=== PATIENT | male | born 1955 | race Caucasian/White ===

== ENCOUNTER 2018-06-20 11:32 | Outpatient (CLI) | payer OTHER ==
[~2018-06-20] VITALS: Ht 180.3 cm; Wt 60.0 kg
--- NOTE | ~2018-06-20 | HEMODYNAMI ---
PATIENT:SELINA COPELAND MEDICAL RECORD: [id number] : 57 LOCATION:[facility] ADMISSION DATE: 06/20/18 Generatedon:06/20/201813:47 Patient name: SELINA COPELAND Patient #: [id number] SSN: : Date of study: 06/20/2018 Page: Of Hemodynamic Procedure Report Patient Data Patient Demographics Procedure consent was obtained First Name: SELINA Gender: Male Last Name: MIN : 1955 Patient #: [id number] Age: 63 year(s) Race: Unknown Additional ID: [id number] Contact details Address: [address] [place] [address] [address] State: [place] City: [facility] Zip code: [address] Past Medical History Allergies Allergen Reaction Date Comments Reported Other allergy 06/20/2018 PCN Admission Admission Data Admission Date: 06/20/2018 Admission Time: 11:32 Procedure Procedure Types Cath Procedure Diagnostic Procedure LHC LHC w/Coronaries Sedation Charges Moderate Sedation up to 15 minutes Procedure Description Procedure Date Procedure Date: 06/20/2018 Procedure Start Time: 13:15 Procedure End Time: 13:32 Procedure Staff Name Function George Rowe MD Performing Physician Kristie Middleton RT Monitor Xiomara Turpin RT Scrub Nelson Constantino RN Nurse Procedure Data Cath Procedure Fluoroscopy Diagnostic fluoroscopy Total fluoroscopy Time: 2 time: 2 min min Diagnostic fluoroscopy Total fluoroscopy dose: 682 dose: 682 mGy mGy Contrast Material Contrast Material Type Amount (ml) Isovue 300 71 Entry Location Entry Primary Successful Side Size Upsize Upsize Entry Closure [place] ccessful Closure Location (Fr) 1 (Fr) 2 (Fr) Remarks Device Remarks Radial Right 6 Fr Mechanical artery Short Compression Estimated blood loss: 10 ml Diagnostic catheters Device Type Used For End Catheter Placement DIAGNOSTIC Tadeo 110cm Procedure 5Fr catheter ([id number]) Procedure Complications No complications Procedure Medications Medication Administration Route Dosage Oxygen etCO2 Nasal cannula 2 l/min Heparin Flush Bag added to field 2 bags (1000units/500ml NS) 0.9% NaCl I.V. 100 ml/hr Radial Cocktail added to field 1 syringe (Verapomil 2mg/Nitro 400mcg/Heparin 1500units) Fentanyl I.V. 50 mcg Versed I.V. 1 mg Fentanyl I.V. 50 mcg Versed I.V. 1 mg Fentanyl I.V. 50 mcg Versed I.V. 1 mg Radial Cocktail I.A. 1 syringe (Verapomil 2mg/Nitro 400mcg/Heparin 1500units) Fentanyl I.V. 50 mcg Versed I.V. 1 mg Fentanyl I.V. 50 mcg Versed I.V. 1 mg Fentanyl I.V. 50 mcg Versed I.V. 1 mg Hemodynamics Rest Heart Rate: 89 (bpm) Pressure Samples Time Site Value (mmHg) Purpose Heart Use Rate(bpm) 13:18 LV 81/11,20 Snapshot 89 13:20 LV 122/-3,22 Snapshot 64 13:21 LV 127/-4,24 Snapshot 60 13:22 AO 111/64(84) Pullback 63 13:22 LV 126/-4,22 Pullback 63 Gradients Valve Time Site 1 Site 2 Mean SEP/DFP Peak To Heart Use (mmHg) (sec/min) Peak Rate (mmHg) (bpm) Aortic 13:22 LV AO 9 18 15 63 126/-4,22 111/64(84) Calculations Valve P-P Mean Valve Index Valve Source Name Gradient Area Flow (cm2) Aortic 15 9 15 9 Snapshots Pre Cath Intra NCS Post Cath Vital Signs Time Heart Resp SPO2 etCO2 NIBP Rhythm Pain Sedation Rate (ipm) (%) (mmHg) (mmHg) Status Level (bpm) 12:59:31 60 16 0 Measuring NSR 0 (11) 10(A) , No pain 12:59:51 58 16 100 0 106/78(90) NSR 0 (11) 10(A) , No pain 13:03:57 59 16 98 0 106/69(80) NSR 0 (11) 10(A) , No pain 13:08:05 58 17 98 0 109/67(80) NSR 0 (11) 10(A) , No pain 13:12:11 57 16 98 0 105/72(86) NSR 0 (11) 10(A) , No pain 13:16:21 54 17 98 1.5 92/59(71) NSR 0 (11) 9(A) , No pain 13:20:22 69 16 96 0 94/71(85) NSR 0 (11) 9(A) , No pain 13:25:11 80 17 94 0 107/66(91) NSR 0 (11) 9(A) , No pain 13:29:17 85 16 94 0 110/72(91) NSR 0 (11) 9(A) , No pain 13:35:32 88 17 94 0 105/65(87) NSR 0 (11) 9(A) , No pain 13:42:52 83 17 94 0 101/63(80) NSR 0 (11) 9(A) , No pain Medications Time Medication Route Dose Verified Delivered Reason Notes Effectiveness by by 13:00:43 Oxygen etCO2 2 l/min George Nelson Per Nasal Jae Constantino RN physician cannula 13:00:52 Heparin Flush added 2 bags George Nelson used for Bag to Jae Constantino supervisor compressed yeast (1000units/500ml field NS) 13:01:01 0.9% NaCl I.V. 100 George Nelson Per ml/hr Jae Constantino RN physician 13:01:09 Radial Cocktail added 1 George Nelson used for (Verapomil to syringe Jae Constantino RN procedure 2mg/Nitro field 400mcg/Heparin 1500units) 13:10:17 Fentanyl I.V. 50 mcg George Nelson for sedation Jae Constantino RN 13:10:24 Versed I.V. 1 mg George Nelson for sedation Jae Constantino RN 13:13:13 Fentanyl I.V. 50 mcg George Nelson for sedation Jae Constantino RN 13:13:16 Versed I.V. 1 mg George Nelson for sedation Jae Constantino RN 13:15:33 Fentanyl I.V. 50 mcg George Nelson for sedation Jae Constantino RN 13:15:36 Versed I.V. 1 mg George Nelson for sedation Jae Constantino RN 13:16:24 Radial Cocktail I.A. 1 George George for (Verapomil syringe Jae pringle 2mg/Nitro 400mcg/Heparin 1500units) 13:17:51 Fentanyl I.V. 50 mcg George Nelson for sedation Jae Constantino RN 13:17:56 Versed I.V. 1 mg George Nelson for sedation Jae Constantino RN 13:19:48 Fentanyl I.V. 50 mcg George Nelson for sedation Jae Constantino RN 13:20:05 Versed I.V. 1 mg George Nelson for sedation Jae Constantino RN 13:23:38 Fentanyl I.V. 50 mcg George Nelson for sedation Jae Constantino RN 13:23:42 Versed I.V. 1 mg George Nelson for sedation Jae Constantino RN Procedure Log Time Note 12:40:02 Nelson Constantino RN sent for patient. Start room use. 12:49:03 Time tracking: Regular hours (M-F 7:00 - 5:00) 12:49:08 Plan of Care:Hemodynamics will remain stable., Cardiac rhythm will remain stable., Comfort level will be maintained., Respiratory function will remain adequate., Patient/ family verbilizes understanding of procedure., Procedure tolerated without complication., Recovers from procedure without complications.. 12:53:59 Patient received from Pre/Post Procedure Room to CCL 2 Alert and oriented. Tansferred to table in Supine position. 12:54:00 Warm blankets applied, and viry hugger turned on for patient comfort. 12:54:00 Correct patient and procedure confirmed by team. 12:54:02 Signed procedure consent form obtained from patient. 12:54:03 ECG and BP/O2 sat monitors applied to patient. 12:57:43 Vital chart was started 12:57:57 Full Disclosure recording started 12:58:15 H&P Date Dictated: 06/02/2018 Within 30 days and on chart., H&P Addendum completed by physician on day of procedure. (MUST COMPLETE FOR ALL OUTPATIENTS). 12:58:17 Pre-procedure instructions explained to patient. 12:58:19 Family in waiting room. 12:58:21 Patient NPO since Midnight. 12:58:32 Patient allergic to Other allergyPCN 12:58:40 Was the patient premedicated? Yes 12:58:41 Is patient on blood thinner?No 12:58:48 Patient diabetic? No. 12:58:53 Snore? Yes 12:58:54 Sleep apnea? Yes 12:58:55 Deviated septum? No 12:58:57 Opens mouth fully? Yes 12:58:59 Sticks out tongue? Yes 12:59:05 Dentures? No ? 12:59:11 Patient pain scale 0/10 ?. 12:59:22 IV patent on arrival in left forearm with 0.9% NaCl at [facility]. 12:59:30 Lab results completed and on chart. 12:59:37 Right Radial & Right Groin area was prepped with chlora-prep and draped in sterile fashion 12:59:38 Alarms reviewed by R. N. 12:59:38 Sharps counted by scrub and verified by R.N. 12:59:41 Physician paged 13:00:43 Oxygen 2 l/min etCO2 Nasal cannula was administered by Nelson Constantino RN; Per physician; 13:00:52 Heparin Flush Bag (1000units/500ml NS) 2 bags added to field was administered by Nelson Constantino RN; used for procedure; 13:01:01 0.9% NaCl 100 ml/hr I.V. was administered by Nelson Constantino RN; Per physician; 13:01:09 Radial Cocktail (Verapomil 2mg/Nitro 400mcg/Heparin 1500units) 1 syringe added to field was administered by Nelson Constantino RN; used for procedure; 13:09:51 Physician arrived 13:09:51 --------ALL STOP TIME OUT------ 13:09:52 Final Timeout: patient, procedure, and site verified with staff and physician. All members of the team are in agreement. 13:10:00 Right Radial & Right Groin site verified by team. 13:10:06 Physical assessment completed. ASA score P 2 - A patient with mild systemic disease as per George Rowe MD. 13:10:13 Sedation plan: IV Moderate Sedation Medication:Versed, Fentanyl 13:10:17 Fentanyl 50 mcg I.V. was administered by Nelson Constantino RN; for sedation; 13:10:20 Use device set Radial Dx or PCI 13:10:21 ACIST Syringe (46543) opened to sterile field. 13:10:21 Medline Cath Pack ([id number]) opened to sterile field. 13:10:21 Bag Decanter (2002S) opened to sterile field. 13:10:22 DIAGNOSTIC WIRE .035 260cm J wire (367613) opened to sterile field. 13:10:22 ACIST Hand Control (33555) opened to sterile field. 13:10:23 ACIST Manifold (62919) opened to sterile field. 13:10:23 Tegaderm 4 x 4 (1626W) opened to sterile field. 13:10:24 Versed 1 mg I.V. was administered by Nelson Constantino RN; for sedation; 13:10:24 MBrace Wrist Support ([id number]) opened to sterile field. 13:10:24 NEEDLE Cook 21G 4cm Radial ([id number]) opened to sterile field. 13:10:41 TR BAND Standard ([id number]) opened to sterile field. 13:10:45 SHEATH 6Fr Prelude Radial ([id number]) opened to sterile field. 13:13:13 Fentanyl 50 mcg I.V. was administered by Nelson Constantino RN; for sedation; 13:13:16 Versed 1 mg I.V. was administered by Nelson Constantino RN; for sedation; 13:15:33 Fentanyl 50 mcg I.V. was administered by Nelson Constantino RN; for sedation; 13:15:36 Versed 1 mg I.V. was administered by Nelson Constantino RN; for sedation; 13:15:41 Local anesthetic to right radial artery with Lidocaine 2% by George Rowe MD.INITIAL ACCESS ONLY 13:16:08 A 6 Fr Short sheath was inserted into the Right Radial artery 13:16:24 Radial Cocktail (Verapomil 2mg/Nitro 400mcg/Heparin 1500units) 1 syringe I.A. was administered by George Rowe MD; for vasodilation; 13:17:09 A DIAGNOSTIC Tadeo 110cm 5Fr catheter ([id number]) was advanced over the wire and used for Procedure. 13:17:51 Fentanyl 50 mcg I.V. was administered by Nelson Constantino RN; for sedation; 13:17:56 Versed 1 mg I.V. was administered by Nelson Constantino RN; for sedation; 13:19:48 Fentanyl 50 mcg I.V. was administered by Nelson Constantino RN; for sedation; 13:20:05 Versed 1 mg I.V. was administered by Nelson Constantino RN; for sedation; 13:22:09 EF : 55 % 13:22:13 LV angiography performed. 13:22:15 LV gram done using CHEN 13:23:10 RCA angiography performed. 13:23:38 Fentanyl 50 mcg I.V. was administered by Nelson Constantino RN; for sedation; 13:23:42 Versed 1 mg I.V. was administered by Nelson Constantino RN; for sedation; 13:24:00 LCA angiography performed. 13:24:19 Pt. bagged with bag/mask with 100% O2 by Nelson Constantino RN 13:27:26 Catheter removed. 13:27:50 Sheath removed intact; hemostasis achieved with Mechanical Compression to the Right Radial artery. 13:27:53 Procedure ended.(Physican Out) 13:28:17 Fluoroscopy time 02.00 minutes. 13:28:21 Flurop Dose total: 682 13:28:21 Fluoroscopy dose: 682 mGy 13:29:07 Contrast amount:Isovue 300 71ml. 13:29:08 Sharps counted by scrub and verified by R.N. 13:29:28 TR band inflated with 10cc of air. 13:29:30 Insertion/operative site no bleeding no hematoma. 13:29:37 Post right femoral artery:stable 13:29:40 Post Procedure Pulses reassessed and unchanged 13:29:47 Post-procedure physical assessment completed. ASA score P 2 - A patient with mild systemic disease as per George Rowe MD. 13:29:52 Post procedure rhythm: unchanged. 13:30:05 Estimated blood loss: 10 ml 13:30:09 Post procedure instruction explained to patient.Patient verbalizes understanding. 13:31:12 Procedure type changed to Cath procedure, Diagnostic procedure, LHC, LHC w/Coronaries, Sedation Charges, Moderate Sedation up to 15 minutes 13:31:14 Procedure and supply charges have been captured, reviewed, submitted and are correct. 13:32:20 Procedure Complication : No complications 13:32:24 Vital chart was stopped 13:32:34 See physician's report for complete and final results. 13:32:36 Report given to Pre/Post Procedure Room. 13:32:42 Patient transfered to Pre/Post Procedure Room with Stretcher. 13:32:44 Procedure ended. 13:32:44 Full Disclosure recording stopped 13:32:48 End room use (Document Last) Device Usage Item Name Manufacture Quantity Catalog Number Hospital Part Current M inimal Lot# / Charge Number Stock Stock Serial# Code ACIST Syringe Acist 1 73284 292977 078520 939380 2 0 (67177) [employer] Medline Cath Medline 1 [id number] 096646 76011 041653 5 Pack ([id number]) Bag Decanter Microtek 1 2001S 802328 75697 881029 5 (2001S) Medical Inc. DIAGNOSTIC WIRE St Javed 1 815680 757394 284293 122906 3 0 .035 260cm J wire (521567) ACIST Hand Acist 1 41366 673746 034043 666784 5 Control (33522) [employer] ACIST Manifold Acist 1 15894 313788 431240 449570 5 (39475) [employer] Inc Tegaderm 4 x 4 3M 1 1626W 499044 987779 080225 5 (1626W) MBrace Wrist Advanced 1 140-0250-00 622255 80650 785161 5 Support Vascular ([id number]) Dynamics NEEDLE Cook 21G Cook Medical 1 Q82087 577338 993405 670379 5 4cm Radial (H14934) TR BAND Terumo 1 VCN02-TTL 621480 784591 752534 4 0 Standard ([id number]) SHEATH 6Fr Merit 1 [id number] 181985 422598 640299 5 Prelude Radial Medical ([id number]) DIAGNOSTIC Terumo 1 40-7286 112415 158173 592630 5 Tadeo 110cm 5Fr catheter (594350) Signature Audit English Stage Time Signature Unsigned Intra-Procedure 06/20/2018 Kristie Middlteon 1:47:51 PM RT(R) Signatures Monitor : Kristie Middleton Signature : RT Date : Time : [facility] [address] [place] [address]
[2018-06-20] MEDS ORDERED: LISINOPRIL5 MG PO (11:48)
[2018-06-20] MEDS ORDERED: PRAVACHOL40 MG PO (11:50)
[2018-06-20 12:15] VITALS: BP 106/68; Ht 180.3 cm; Wt 60.0 kg
[2018-06-20] MEDS ORDERED: CELEXA40 MG PO (12:20)
[2018-06-20] MEDS ORDERED: KLONOPIN0.5 MG PO (12:20)
[2018-06-20] MEDS ORDERED: NEURONTIN 300300 MG PO (12:21)
[2018-06-20 12:31] LABS: BASOPHILS 0 % (0-2); EOSINOPHILS 1.9 % (0-7); HEMATOCRIT 41.3 % (42.0-54.0); HEMOGLOBIN 14.8 g/dL (13.5-17.5); IMMATURE GRANULOCYTES 0.2 % (0-5); LYMPHOCYTES 42.4 % (15-50); MCH 32.7 pg (26.0-34.0); MCHC 35.8 g/dL (31.0-37.0); MCV 91.2 fL (80.0-100.0); MEAN PLATELET VOLUME 9.3 fL (7.4-10.4); MONOCYTES 6.8 % (2-11); NEUTROPHILS 48.7 % (40-80); PLATELET COUNT 100 10x3/uL (130-400); RBC 4.53 10x6/uL (4.20-6.10); WBC 4.1 10x3/uL (4.8-10.8)
[2018-06-20 12:44] LABS: CALC OSMOLALITY 285 mosm/kg (275-300); CALCIUM 8.7 mg/dL (8.5-10.1); CARBON DIOXIDE 28.4 mmol/L (21.0-32.0); CHLORIDE - SERUM 108 mmol/L (98-107); CREATININE - SERUM 0.9 mg/dL (0.6-1.3); GLUCOSE 99 mg/dL (74-106); POTASSIUM - SERUM 4.4 mmol/L (3.5-5.1); SODIUM 143 mmol/L (136-145); UREA NITROGEN 15 mg/dL (7-18); eGFR NON AFRICAN AMERICAN > 90 mL/min (90-120)
== END 2018-06-20 16:20 | disposition home or self-care (01) ==
LOC: D.CATH 11:32
PROVIDERS: Internal Medicine Cardiovascular Disease
DX: I25.119 Atherosclerotic heart disease of native coronary artery with unspecified angina pectoris (principal); Z01.812 Encounter for preprocedural laboratory examination

== ENCOUNTER → 2018-11-30 19:11 | Outpatient (CLI) | payer OTHER ==
[2018-06-20 12:15] VITALS: BMI 18.4
[~2018-11-30 19:11] MED LIST: CELEXA40 MG PO; KLONOPIN0.5 MG PO; LISINOPRIL5 MG PO; NEURONTIN 300300 MG PO; PRAVACHOL40 MG PO
== END | disposition home or self-care (01) ==
LOC: D.LABREF 19:11
PROVIDERS: ATTEND Urology
DX: R31.9 Hematuria, unspecified (principal)

== ENCOUNTER → 2018-12-06 15:57 | Outpatient (CLI) | payer OTHER ==
[2018-06-20 12:15] VITALS: BMI 18.4
== END | disposition home or self-care (01) ==
LOC: D.CT 15:57
PROVIDERS: ATTEND Urology
DX: R31.21 Asymptomatic microscopic hematuria (principal)

== ENCOUNTER → 2018-12-22 10:36 | Outpatient (CLI) | payer OTHER ==
[2018-06-20 12:15] VITALS: BMI 18.4
== END | disposition home or self-care (01) ==
LOC: D.LAB 10:36
PROVIDERS: ATTEND Urology
DX: Z12.5 Encounter for screening for malignant neoplasm of prostate (principal)

== ENCOUNTER → 2019-08-09 13:58 | Outpatient (CLI) | payer OTHER ==
[2018-06-20 12:15] VITALS: BMI 18.4
== END | disposition home or self-care (01) ==
LOC: D.HCCARDIO 07-24 14:30 → D.HCCECHO 07-24 14:30
PROVIDERS: ATTEND Internal Medicine Cardiovascular Disease
DX: I25.10 Atherosclerotic heart disease of native coronary artery without angina pectoris (principal)